=== PATIENT | female | born 2000 | race Caucasian/White ===

== ENCOUNTER 2020-11-26 00:33 | Emergency (ER) | payer SELFPAY ==
[~2020-11-26] VITALS: Ht 154.9 cm; Wt 76.0 kg
[2020-11-26] MEDS ORDERED: AMOXICILLIN/POTASSIUM CLAVULANATE 875/125MG TAB PO ONE (01:45)
[2020-11-26] MEDS ORDERED: ACETAMINOPHEN 325MG TABLET PO ONE (01:45)
[2020-11-26] MEDS ORDERED: AMOX-424 MT (02:57)
[2020-11-26] MEDS ORDERED: HYDROCODONE/ACETAMINOPHEN 5/325MG TABLET PO ONE (03:15)
[2020-11-26 03:21] VITALS: BP 113/55
== END 2020-11-26 03:23 | disposition home or self-care (01) ==
LOC: ER 01:38
DX: S61.253D Open bite of left middle finger without damage to nail, subsequent encounter (principal); W54.0XXD Bitten by dog, subsequent encounter; Z88.6 Allergy status to analgesic agent
CPT/HCPCS: 73130; 99283